=== PATIENT | male | born 1995 | race Hispanic/Latino ===

== ENCOUNTER 2019-09-21 22:14 | Emergency (ER) | payer OTHER ==
[~2019-09-21] VITALS: Ht 182.9 cm; Wt 81.8 kg
[2019-09-21] MEDS ORDERED: LORazepam 2 MG/ML VIAL (J2060) IV STA ×2 (22:41→23:04)
[2019-09-21] MEDS ORDERED: LORazepam 2 MG/ML VIAL (J2060) As Ordered ONE (22:42)
[2019-09-21 22:51] LABS: VENOUS BASE EXCESS -7.7 (-2.0-2.0); VENOUS O2 SATURATION 99.2 % (60.0-80.0); VENOUS PARTIAL PRESSURE CO2 19.2 mmHg (38.0-50.0); VENOUS PARTIAL PRESSURE O2 181.2 mmHg (30.0-50.0); VENOUS PH 7.447 UNITS (7.330-7.430); VENOUS STANDARD HCO3 18.4 MEQ/L; VENOUS TOTAL CO2 13.5 MEQ/L (24.0-28.0)
[2019-09-21 23:04] LABS: HEMATOCRIT 48.8 % (42.0-52.0); HEMOGLOBIN 16.6 g/dl (13.5-17.5); MEAN CORPUSCULAR HEMOGLOBIN 31.1 pg (27.0-33.0); MEAN CORPUSCULAR VOLUME 91.4 fl (80.0-96.0); PLATELET COUNT, AUTOMATED 347 10^3/uL (150-450); RED BLOOD COUNT 5.34 10^6/uL (4.30-6.10); WHITE BLOOD COUNT 16.3 10^3/uL (4.0-10.0)
[2019-09-21 23:26] LABS: ATYPICAL LYMPH 3 % (0-5); LYMPHOCYTES 33 % (16-44); MONOCYTES 7 % (0-5); NEUTROPHILS 57 % (28-66)
[2019-09-21 23:27] LABS: ALBUMIN 4.5 GM/DL (3.2-5.2); ALT/SGPT 23 U/L (12-78); BILIRUBIN,DIRECT 0.2 MG/DL (0.0-0.2); BILIRUBIN,TOTAL 0.7 MG/DL (0.2-1.0); BLOOD UREA NITROGEN 8 MG/DL (7-18); CALCIUM LEVEL 9.5 MG/DL (8.5-10.1); CARBON DIOXIDE LEVEL 16 MEQ/L (21-32); CHLORIDE LEVEL 99 MEQ/L (98-107); CPK CREATINE PHOSPHOKINASE 148 U/L (39-308); CREATININE FOR GFR 1.45 MG/DL (0.70-1.30); ETHYL ALCOHOL (ETHANOL) < 0.003 % (0.000-0.010); GLOMERULAR FILTRATION RATE > 60.0 (>60); GLUCOSE, FASTING 130 MG/DL (70-100); PLATELET ESTIMATE NORMAL (NORMAL); POTASSIUM SERUM 3.6 MEQ/L (3.5-5.1); SALICYLATE LEVEL < 1.7 MG/DL (5.0-30.0); SODIUM LEVEL 136 MEQ/L (136-145); TOTAL PROTEIN 8.6 GM/DL (6.4-8.2)
[2019-09-21 23:28] LABS: ACETAMINOPHEN LEVEL < 2.0 UG/ML (10.0-30.0)
[2019-09-21] MEDS ORDERED: NS 2,450 ML in IV 1 EA IV ONE (23:30)
[2019-09-22 01:33] LABS: VENOUS BASE EXCESS -2.2 (-2.0-2.0); VENOUS HCO3 22.9 MEQ/L (23.0-27.0); VENOUS O2 SATURATION 97.5 % (60.0-80.0); VENOUS PARTIAL PRESSURE CO2 40.6 mmHg (38.0-50.0); VENOUS PARTIAL PRESSURE O2 99.1 mmHg (30.0-50.0); VENOUS PH 7.369 UNITS (7.330-7.430); VENOUS STANDARD HCO3 22.6 MEQ/L; VENOUS TOTAL CO2 24.1 MEQ/L (24.0-28.0)
[2019-09-22 02:37] LABS: AMPHETAMINES LEVEL URINE NEGATIVE (NEGATIVE); BARBITURATES URINE NEGATIVE (NEGATIVE); BENZODIAZEPINES URINE NEGATIVE (NEGATIVE); CANNABINOIDS URINE NEGATIVE (NEGATIVE); COCAINE METABOLITE URINE NEGATIVE (NEGATIVE); METHADONE URINE NEGATIVE (NEGATIVE); OPIATES URINE NEGATIVE (NEGATIVE); PHENCYCLIDINE URINE NEGATIVE (NEGATIVE)
[2019-09-22 03:33] VITALS: O2SAT 99
[2019-09-22 04:06] VITALS: BP 149/82
--- NOTE | 2019-09-22 16:29 | ECGEPIP ---
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
== END 2019-09-22 04:27 | disposition home or self-care (01) ==
LOC: M ED 22:14
DX: F45.8 Other somatoform disorders (principal); F10.99 Alcohol use, unspecified with unspecified alcohol-induced disorder; F17.200 Nicotine dependence, unspecified, uncomplicated
CPT/HCPCS: 36415; 80048; 80076; 80307; 82550; 82803; 83605; 84443; 85025; 93005; 93041; 94760; 96361; 96374; 96376; 99285; G0480; J2060